=== PATIENT | female | born 1980 | race Caucasian/White ===

== ENCOUNTER 2020-08-23 20:01 | Emergency (ER) | payer SELFPAY ==
[~2020-08-23] VITALS: Ht 162.6 cm; Wt 47.2 kg
[2020-08-23 20:01] VITALS: BP 116/68
== END 2020-08-23 20:54 | disposition home or self-care (01) ==
LOC: ER 20:09
DX: S06.0X0A Concussion without loss of consciousness, initial encounter (principal); S00.03XA Contusion of scalp, initial encounter; W22.8XXA Striking against or struck by other objects, initial encounter; Y93.89 Activity, other specified; Y92.830 Public park as the place of occurrence of the external cause; Y99.8 Other external cause status